=== PATIENT | male | born 1945 | race Hispanic/Latino ===

== ENCOUNTER 2024-04-03 11:47 | Emergency (ER) | payer MEDICARE ==
[~2024-04-03] VITALS: Ht 172.7 cm; Wt 104.3 kg
[~2024-04-03 11:47] MED LIST: AMLODIPINE PO; ASPIRIN325 MG PO; ATENOLOL-CHLOR1 EAC1 PO; LISINOPRIL PO; LOVASTATIN PO; NITROGLYCERIN0.4 MG SL; NORCO 7.5-3251 EACH PO; OMEPRAZOLE PO
[2024-04-03 12:52] LABS: BASOPHILS % 0.3 % (0.0-1.0); EOSINOPHILS # (AUTO) 0.1 (0.0-0.4); HEMATOCRIT 44.4 % (38.2-49.6); HEMOGLOBIN 15.6 g/dL (14.0-18.0); LYMPHOCYTES # (AUTO) 1.5 (1.0-3.2); LYMPHOCYTES % 14.9 % (18.0-39.1); MEAN CORPUSCULAR HEMOGLOBIN 32.2 pg (28-32); MEAN CORPUSCULAR HGB CONC 35.1 g/dL (31-35); MEAN CORPUSCULAR VOLUME 91.5 fL (81-99); MONOCYTES # (AUTO) 1.2 (0.2-0.8); MONOCYTES % 11.5 % (4.4-11.3); NEUTROPHILS # (AUTO) 7.3 (2.1-6.9); NEUTROPHILS % 72.1 % (38.7-80.0); PLATELET COUNT 209 x10e3/uL (140-360); RED BLOOD COUNT 4.85 x10e6/uL (4.3-5.7); RED CELL DISTRIBUTION WIDTH 13.2 % (11.7-14.4); WHITE BLOOD COUNT 10.12 x10e3/uL (4.8-10.8)
[2024-04-03 13:01] VITALS: O2SAT 99
[2024-04-03 13:13] LABS: ALBUMIN 3.7 g/dL (3.5-5.0); ALBUMIN/GLOBULIN RATIO 1.1 (0.8-2.0); ANION GAP 14.6 mmol/L (8-16); BILIRUBIN,TOTAL 1.1 mg/dL (0.2-1.2); CALCIUM 9.5 mg/dL (8.4-10.2); CREATININE, SERUM 0.91 mg/dL (0.72-1.25); POTASSIUM 3.6 mmol/L (3.5-5.1)
== END 2024-04-03 15:19 | disposition home or self-care (01) ==
LOC: ER 12:03
DX: M79.89 Other specified soft tissue disorders (principal); R60.9 Edema, unspecified; I10 Essential (primary) hypertension; E78.5 Hyperlipidemia, unspecified; K21.9 Gastro-esophageal reflux disease without esophagitis
CPT/HCPCS: 36415; 80053; 85025; 93971; 99284

== ENCOUNTER 2024-06-28 09:59 | Emergency (ER) | payer MEDICARE ==
[~2024-06-28] VITALS: Ht 172.7 cm; Wt 104.3 kg
[2024-06-28 10:20] VITALS: PULSE 82; RESP 17; TEMP 97.4; O2SAT 98
[2024-06-28] MEDS ORDERED: DOXYCYCLINE HY100 MG PO (10:27)
== END 2024-06-28 10:43 | disposition home or self-care (01) ==
LOC: ER 10:06
DX: M25.532 Pain in left wrist (principal); L03.114 Cellulitis of left upper limb; W57.XXXA Bitten or stung by nonvenomous insect and other nonvenomous arthropods, initial encounter; Y92.89 Other specified places as the place of occurrence of the external cause; I10 Essential (primary) hypertension; E78.5 Hyperlipidemia, unspecified; I25.10 Atherosclerotic heart disease of native coronary artery without angina pectoris; K21.9 Gastro-esophageal reflux disease without esophagitis
CPT/HCPCS: 99283